=== PATIENT | female | born 1970 ===

== ENCOUNTER 2018-08-14 09:56 | Outpatient (CLI) | payer OTHER | END 2018-08-14 09:57 | disposition home or self-care (01) | LOC: LAB 09:56 ==

== ENCOUNTER 2018-09-30 09:54 | Outpatient (CLI) | payer OTHER | END 2018-09-30 09:55 | disposition home or self-care (01) | LOC: LAB 09:54 | DX: M06.9 Rheumatoid arthritis, unspecified (principal) ==

== ENCOUNTER 2018-11-07 10:09 | Outpatient (CLI) | payer OTHER | END 2018-11-07 10:10 | disposition home or self-care (01) | LOC: RAD 10:09 ==